=== PATIENT | male | born 1990 ===

== ENCOUNTER → 2019-07-12 | Outpatient (CLI) | payer OTHER ==
--- NOTE | 2019-07-12 08:40 | RADIOLOGY REPORT (SQ) ---
EXAM DESCRIPTION: DUPLEX ART/CARMEN FLOW COMPLETE COMPLETED DATE/TIME: 07/12/2019 8:08 am REASON FOR STUDY: HTN/DERREK COMPARISON: None. TECHNIQUE: Realtime and static grayscale images acquired. Selected color Doppler, velocities and spe ctral images recorded. LIMITATIONS: None. FINDINGS: RIGHT KIDNEY: RENAL ARTERY VELOCITIES: 51.9 cm/sec. These velocities were obtained in the mid renal artery. Segme ntal artery velocity 34.6 cm/sec. RENAL VEIN: Color doppler flow present, patent. VELOCITY RATIO: 0.64. Normal waveforms. KIDNEY: Normal size. No significant pathology. LEFT KIDNEY: RENAL ARTERY VELOCITIES: 50.9 cm/sec. These velocities were obtained in the mid renal artery. Segme ntal artery velocity 24.9 cm/sec. RENAL VEIN: Color doppler flow present, patent. VELOCITY RATIO: 0.49. Normal waveforms. KIDNEY: Normal size. No significant pathology. BLADDER: Incompletely distended. OTHER: No other significant finding. IMPRESSION: NO DOPPLER EVIDENCE OF HEMODYNAMICALLY SIGNIFICANT RENAL ARTERY STENOSIS. COMMENT: NORMAL RENAL ARTERY/AORTA VELOCITY RATIO IS LESS THAN OR EQUAL TO 3.5. TECHNICAL DOCUMENTATION: JOB ID: [id number] [employer]- All Rights Reserved Reading location - IP/workstation name: [email or web address]
== END ==
LOC: RAD 07:07
PROVIDERS: ATTEND Internal Medicine
DX: I70.1 Atherosclerosis of renal artery (principal)
CPT/HCPCS: 93975